=== PATIENT | female | born 1950 | race Caucasian/White ===

== ENCOUNTER → 2017-08-10 | Outpatient (CLI) | payer MEDICARE, OTHER ==
[2017-08-10 10:34] LABS: ALBUMIN 3.8 GM/DL (3.2-4.5); BILIRUBIN,DIRECT 0.2 MG/DL (0.0-0.3); BILIRUBIN,INDIRECT 0.7 MG/DL; BILIRUBIN,TOTAL 0.9 MG/DL (0.1-1.0); TOTAL PROTEIN 7.5 GM/DL (6.4-8.2)
== END ==
LOC: LAB 10:01
PROVIDERS: ATTEND Surgery
DX: R17 Unspecified jaundice (principal)
CPT/HCPCS: 36415; 80076